=== PATIENT | male | born 1950 | race Caucasian/White ===

== ENCOUNTER 2017-01-22 14:57 | Emergency (ER) | payer BC, OTHER ==
--- NOTE | 2017-01-22 15:11 | EDM.PDOC ---
ED HPI Trauma - General Chief Complaint: Lower Extremity Injury/Pain Stated Complaint: RT LEG HURTS Time Seen by Provider: 01/22/17 15:11 Source: Reports: Patient History Limitations: Reports: No limitations - History of Present Illness INITIAL COMMENTS - FREE TEXT/NARRATIVE: History of present illness: [66-year-old male history of stepping off any equipment and landing wrong on his right foot with a rolling injury. Patient has edema and scant amount of ecchymosis to the right malleolar area] Review of systems: As per history of present illness and below otherwise all systems reviewed and negative. Past medical history: As per history of present illness and as reviewed below otherwise noncontributory. Surgical history: As per history of present illness and as reviewed below otherwise noncontributory. Social history: No reported history of drug or alcohol abuse. Family history: As per history of present illness and as reviewed below otherwise noncontributory. Physical exam: HEENT: Atraumatic, normocephalic, pupils reactive, negative for conjunctival pallor or scleral icterus, mucous membranes moist, throat clear, neck supple, nontender, trachea midline. Lungs: Clear to auscultation, breath sounds equal bilaterally, chest nontender. Heart: S1S2, regular, negative for clicks, rubs, or JVD. Abdomen: Soft, nondistended, nontender. Negative for masses or hepatosplenomegaly. Negative for costovertebral tenderness. Pelvis: Stable nontender. Genitourinary: Deferred. Rectal: Deferred. Extremities: right malleolus with edema and some ecchymosis, otherwise negative for cords or calf pain. Neurovascular unremarkable. Neuro: Awake, alert, oriented. Cranial nerves II through XII unremarkable. Cerebellum unremarkable. Motor and sensory unremarkable throughout. Exam nonfocal. Diagnostics: [ X-ray right] Therapeutics: [] Impression: [ Right ankle sprain] Plan: [ Rodrigo wrap crutches OTC pain med] Definitive disposition and diagnosis as appropriate pending reevaluation and review of above. Allergies/ADRs: Allergies No Known Allergies Allergy (Verified 01/22/17 15:10) Home Medications: Ambulatory Orders Aspirin [Lo-Dose Aspirin EC] 81 mg PO DAILY 01/22/17 [Confirmed 01/22/17] Hydrochlorothiazide 25 mg PO DAILY 01/22/17 [Confirmed 01/22/17] Naproxen Sodium [Aleve] 220 mg PO ASDIRECTED PRN 01/22/17 [Confirmed 01/22/17] [place]-3S/DHA/Epa/Fish Oil/D3 [Fish Unz-Hlfpm-1-Vit D Softgel] 1 cap PO DAILY [Confirmed 01/22/17] Valsartan 80 mg PO DAILY 01/22/17 [Confirmed 01/22/17] Review of Systems - Review of Systems Review Of Systems: See Below (See history of present illness) Trauma Exam - Physical Exam Exam: See Below (See history of present illness) Course - Vital Signs Last Recorded V/S: Last Vital Signs Temp 37.3 C 01/22/17 15:08 Pulse 71 01/22/17 15:08 Resp 18 01/22/17 15:08 BP 144/76 H 01/22/17 15:08 Pulse Ox 95 01/22/17 15:08 - Orders/Labs/Meds Meds: Medications Discontinued Medications Generic Name Dose Route Start Last Admin Trade Name Abdirashid PRN Reason Stop Dose Admin Ketorolac Tromethamine 60 mg 01/22/17 15:12 01/22/17 16:04 Toradol IM 01/22/17 15:13 60 mg ONETIME ONE Administration Departure - Departure Time of Disposition: 16:11 Disposition: Home, Self-Care 01 Condition: good Clinical Impression: Right ankle sprain Qualifiers: Encounter type: initial encounter Involved ligament of ankle: unspecified ligament Qualified Code(s): S93.401A - Sprain of unspecified ligament of right ankle, initial encounter Instructions: Ankle Sprain, [id number] Forms: ED Department Discharge Additional Instructions: The following information is given to patients seen in the emergency department who are being discharged to home. This information is to outline your options for follow-up care. We provide all patients seen in our emergency department with a follow-up referral. The need for follow-up, as well as the timing and circumstances, are variable depending upon the specifics of your emergency department visit. If you don't have a primary care physician on staff, we will provide you with a referral. We always advise you to contact your personal physician following an emergency department visit to inform them of the circumstance of the visit and for follow-up with them and/or the need for any referrals to a consulting specialist. The emergency department will also refer you to a specialist when appropriate. This referral assures that you have the opportunity for follow-up care with a specialist. All of these measure are taken in an effort to provide you with optimal care, which includes your follow-up. Under all circumstances we always encourage you to contact your private physician who remains a resource for coordinating your care. When calling for follow-up care, please make the office aware that this follow-up is from your recent emergency room visit. If for any reason you are refused follow-up, please contact the [facility] Emergency Department at and asked to speak to the emergency department charge nurse. Rest ice Rodrigo wrap and and elevate as much as possible Use [id number] pain medication as needed Followup with primary care provider one to 2 days Return to ED as needed as discussed
[2017-01-22] MEDS ORDERED: Ketorolac 60 MG/2 ML SDV IM ONE (15:12)
--- NOTE | 2017-01-22 16:02 | CR ---
EXAMINATION: Right ankle HISTORY: Pain COMPARISON: 08/30/2007 TECHNIQUE: 3 views FINDINGS: There is moderate soft tissue swelling overlying the lateral malleolus. There is no defini te fracture or acute osseous abnormality. Ankle mortise and talar dome appear intact. IMPRESSION: Soft tissue swelling without a definite acute osseous abnormality.
[2017-01-22 16:27] VITALS: BP 134/77
== END 2017-01-22 16:26 | disposition home or self-care (01) ==
LOC: MW.ED 14:57
DX: S93.401A Sprain of unspecified ligament of right ankle, initial encounter (principal); Z79.82 Long term (current) use of aspirin; Z79.899 Other long term (current) drug therapy; X50.1XXA Overexertion from prolonged static or awkward postures, initial encounter; Y93.89 Activity, other specified
CPT/HCPCS: 73610; 96372; 99283; J1885